=== PATIENT | male | born 1960 | race Caucasian/White ===

== ENCOUNTER 2022-05-16 15:05 | Outpatient (CLI) | payer BC, SELFPAY ==
--- NOTE | ~2022-05-16 | XR_ITS ---
EXAMINATION: XR wrist LT min 3V DATE: 05/16/2022 15:32 INDICATION: Left wrist osteoarthritis. TECHNIQUE: 4 views of left wrist were obtained. COMPARISON: None. FINDINGS: Bone alignment is normal. No fracture. There is mild osteoarthritis of triscaphe joint and moderate osteoarthritis of first carpometacarpal joint. There is mild osteoarthritis of distal radiou lnar joint. IMPRESSION: 1. Polyarticular osteoarthritis. Reviewed, dictated and finalized at location A.
== END 2022-05-16 15:06 | disposition home or self-care (01) ==
PROVIDERS: PCP Family Medicine; Visit Provider Plastic Surgery
DX: M19.032 Primary osteoarthritis, left wrist (principal)
CPT/HCPCS: 73110